=== PATIENT | male | born 1985 | race Caucasian/White ===

== ENCOUNTER 2017-01-28 22:03 | Emergency (ER) | payer OTHER ==
[~2017-01-28] VITALS: Ht 195.6 cm; Wt 104.5 kg
[2017-01-28 22:10] VITALS: BP 151/99; PULSE 82; RESP 20; O2SAT 99
--- NOTE | 2017-01-28 23:05 | ED.REPORT ---
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
== END 2017-01-29 00:05 | disposition left against medical advice (07) ==
LOC: SED 22:03
DX: Z53.21 Procedure and treatment not carried out due to patient leaving prior to being seen by health care provider (principal)